=== PATIENT | male | born 1995 | race Two or more races ===

== ENCOUNTER 2018-10-15 17:45 | Emergency (ER) | payer OTHER ==
[~2018-10-15] VITALS: Ht 167.6 cm; Wt 75.9 kg
[2018-10-15 17:46] VITALS: BP 166/101
--- NOTE | 2018-10-15 18:55 | REP ---
LEFT HAND, FIVE VIEWS: There is no evidence of an acute fracture, dislocation or intrinsic bone disease. IMPRESSION: No fracture or dislocation. Electronically Signed by Benjamin Lerner MD 10/15/2018 07:48 P
[2018-10-15] MEDS ORDERED: LIDOCAINE 1% MDV 20ML VIAL IM ONE (19:30)
== END 2018-10-15 20:10 | disposition home or self-care (01) ==
LOC: M ED 17:45
DX: S61.012A Laceration without foreign body of left thumb without damage to nail, initial encounter (principal); W26.0XXA Contact with knife, initial encounter; Y92.018 Other place in single-family (private) house as the place of occurrence of the external cause

== ENCOUNTER 2021-05-23 19:36 | Emergency (ER) | payer OTHER ==
[~2021-05-23] VITALS: Ht 167.6 cm; Wt 98.5 kg
[2021-05-23 19:36] VITALS: BP 127/76
== END 2021-05-23 20:36 | disposition left against medical advice (07) ==
LOC: M ED 19:36
DX: Z53.21 Procedure and treatment not carried out due to patient leaving prior to being seen by health care provider (principal)

== ENCOUNTER 2023-01-29 11:26 | Emergency (ER) | payer OTHER ==
[~2023-01-29] VITALS: Ht 167.6 cm; Wt 95.5 kg
[2023-01-29] MEDS ORDERED: IBUP-1114 PO (12:38)
[2023-01-29] MEDS ORDERED: APAP325T4 PO (12:38)
[2023-01-29] MEDS ORDERED: IBUP-1022 PO (15:36)
[2023-01-29] MEDS ORDERED: ONDA4TAB6 PO (15:36)
[2023-01-29 16:40] VITALS: BP 139/84; TEMP 98.5; O2SAT 98
== END 2023-01-29 16:42 | disposition home or self-care (01) ==
LOC: M ED 11:26
DX: S06.0X0A Concussion without loss of consciousness, initial encounter (principal); W21.11XA Struck by baseball bat, initial encounter; Y92.009 Unspecified place in unspecified non-institutional (private) residence as the place of occurrence of the external cause

== ENCOUNTER 2023-10-23 14:01 | Emergency (ER) | payer OTHER ==
[~2023-10-23] VITALS: Ht 167.6 cm; Wt 96.9 kg
[~2023-10-23 14:01] MED LIST: APAP325T4 PO; IBUP-1022 PO; IBUP-1114 PO; ONDA4TAB6 PO
[2023-10-23 16:10] LABS: BASO # 0.1 10^3/uL (0.0-0.2); BASO % 0.9 % (0.0-1.0); EOS # 0.2 10^3/uL (0.0-0.5); EOS % 2.5 % (0.0-3.0); HEMATOCRIT 50.2 % (42.0-52.0); LYMPH # 4.2 10^3/uL (1.5-5.0); LYMPH % 49.2 % (24.0-44.0); MEAN CORPUSCULAR HEMOGLOBIN 29.2 pg (27.0-33.0); MEAN CORPUSCULAR HGB CONC 33.9 g/dl (32.0-36.5); MEAN CORPUSCULAR VOLUME 86.3 fl (80.0-96.0); MONO # 0.5 10^3/uL (0.0-0.8); MONO % 5.5 % (2.0-8.0); NEUTROPHILS # 3.6 10^3/uL (1.5-8.5); NEUTROPHILS % 41.7 % (36.0-66.0); PLATELET COUNT, AUTOMATED 299 10^3/uL (150-450); RED BLOOD COUNT 5.82 10^6/uL (4.30-6.10); WHITE BLOOD COUNT 8.5 10^3/uL (4.0-10.0)
[2023-10-23 16:36] LABS: LIPASE 38 U/L (12-53)
[2023-10-23 16:41] LABS: ALBUMIN 4.6 G/DL (3.2-5.2); ALKALINE PHOSPHATASE 66 U/L (46-116); ALT/SGPT 108 U/L (7.0-40); AST/SGOT 57 U/L (<34); BILIRUBIN,DIRECT < 0.1 MG/DL (<0.4); BILIRUBIN,TOTAL 0.4 MG/DL (0.3-1.2); BLOOD UREA NITROGEN 12 MG/DL (9-23); CALCIUM LEVEL 8.9 MG/DL (8.5-10.1); CARBON DIOXIDE LEVEL 29 MMOL/L (20-31); CHLORIDE LEVEL 104 MMOL/L (98-107); CREATININE FOR GFR 0.84 MG/DL (0.70-1.30); GLOMERULAR FILTRATION RATE > 60.0 (>60); GLUCOSE, FASTING 59 MG/DL (60-100); POTASSIUM SERUM 4.3 MMOL/L (3.5-5.1); SODIUM LEVEL 141 MMOL/L (136-145); TOTAL PROTEIN 7.5 G/DL (5.7-8.2)
[2023-10-23] MEDS: NS 1,000 ML IV ONE (18:20)
[2023-10-23] MEDS: KETOROLAC 30 MG/ML 1ML VIAL IV ONE (18:20)
[2023-10-23] MEDS ORDERED: ISOVUE-370 76% 100ML VIAL As Ordered ONE (18:26)
[2023-10-23 20:26] VITALS: BP 118/71; TEMP 98.1; O2SAT 98
== END 2023-10-23 20:28 | disposition home or self-care (01) ==
LOC: M ED 14:01
DX: S39.011A Strain of muscle, fascia and tendon of abdomen, initial encounter (principal); X58.XXXA Exposure to other specified factors, initial encounter; Y92.9 Unspecified place or not applicable; Y93.9 Activity, unspecified; Y99.9 Unspecified external cause status; F17.200 Nicotine dependence, unspecified, uncomplicated
CPT/HCPCS: 74177; 80048; 80076; 83690; 85025; 96361; 96374; 99284; J1885; Q9967